=== PATIENT | male | born 1970 | race African-American/Black ===

== ENCOUNTER 2022-02-24 15:41 | Emergency (ER) | payer OTHER ==
[~2022-02-24] VITALS: Ht 170.2 cm; Wt 117.9 kg
--- NOTE | 2022-02-24 16:10 | NUR ---
Patient came in to the er c/o feeling depressed homicidal since yesterday want's voluntary admission to psych. On room air, breathing evenly and unlabored. Kept comfortable, will continue to monitor accordingly.
--- NOTE | 2022-02-24 16:13 | NUR ---
COVID SWAB AND URINE SAMPLE OBTAINED AND SENT TO LAB
[2022-02-24] MEDS ORDERED: OLANZAPINE 5 MG TABLET ONE (16:27)
[2022-02-24] MEDS ORDERED: OLANZAPINE 5 MG TABLET PO ONE (16:30)
[2022-02-24 16:50] LABS: BASOPHILS % (AUTO) 0.4 % (0.0-2.0); EOSINOPHILS % (AUTO) 2.2 % (0.0-6.0); HEMATOCRIT 37 % (39-51); HEMOGLOBIN 12.1 g/dL (13.5-17.5); LYMPHOCYTES # (AUTO) 2.9 K/uL (0.8-4.8); LYMPHOCYTES % (AUTO) 34.7 % (20.0-44.0); MEAN CORPUSCULAR HGB CONC 33 g/dl (31.0-36.0); MEAN CORPUSCULAR VOLUME 95 fL (80-96); MONOCYTES # (AUTO) 0.7 K/uL (0.1-1.30); MONOCYTES % (AUTO) 7.9 % (2.0-12.0); NEUTROPHILS # (AUTO) 4.5 K/uL (1.8-8.9); NEUTROPHILS % (AUTO) 54.8 % (43.0-81.0); PLATELET COUNT (AUTO) 287 K/uL (150-450); RED BLOOD CELL COUNT(AUTO) 3.88 MIL/uL (4.5-6.0); WHITE BLOOD COUNT (AUTO) 8.2 K/uL (4.3-11.0)
[2022-02-24 16:51] LABS: BILIRUBIN,URINE NEGATIVE (NEGATIVE); COLOR,URINE YELLOW (YELLOW); LEUKOCYTE ESTERASE ,URINE NEGATIVE (NEGATIVE); NITRITE, URINE NEGATIVE (NEGATIVE); PROTEIN,URINE NEGATIVE (NEGATIVE); UGLUCOSE NEGATIVE (NEGATIVE); UROBILINOGEN,URINE 0.2 EU/dL (0.2)
[2022-02-24 17:06] LABS: ALANINE AMINOTRANSFERASE 21 U/L (12-78); ALBUMIN 3.5 g/dL (3.4-5.0); ALCOHOL, BLOOD < 3 mg/dL (0-0); ALKALINE PHOSPHATASE 71 U/L (46-116); ASPARTATE AMINOTRANSFERASE 13 U/L (15-37); BILIRUBIN,DIRECT 0.1 mg/dL (0.0-0.2); BILIRUBIN,TOTAL 0.4 mg/dL (0.2-1.0); CALCIUM, SERUM 8.9 mg/dL (8.5-10.1); CARBON DIOXIDE 29 mmol/L (21-32); CHLORIDE 105 mmol/L (98-107); CREATININE 1.1 mg/dL (0.6-1.3); GLUCOSE 103 mg/dL (74-106); POTASSIUM 4.4 mmol/L (3.5-5.1); SODIUM SERUM 140 mmol/L (136-145); TOTAL PROTEIN, SERUM 7.6 g/dL (6.4-8.2); UREA NITROGEN, BLOOD 15 mg/dL (7-18)
--- NOTE | 2022-02-24 18:07 | NUR ---
[facility]ED CLINICALS [facility]
--- NOTE | 2022-02-24 21:17 | NUR ---
PER ART, PT GOING TO [facility] [place] UNDER THE CARE OF DR BERNSTEIN. NUMBER FOR REPORT [phone]
--- NOTE | 2022-02-24 21:45 | NUR ---
[facility] CALLED FOR BLS GOING TO [facility] PER IVANNA - 90 MIN
--- NOTE | 2022-02-24 21:58 | NUR ---
GAVE REPORT TO RUBEN COX FOR MOE
--- NOTE | 2022-02-24 22:30 | NUR ---
GAVE REPORT TO EMS
[2022-02-25 02:58] VITALS: BP 133/76
== END 2022-02-24 22:30 ==
LOC: ER 16:01
DX: R45.850 Homicidal ideations (principal); F20.0 Paranoid schizophrenia; I10 Essential (primary) hypertension; Z20.822 Contact with and (suspected) exposure to COVID-19; Z59.00 Homelessness unspecified; D64.9 Anemia, unspecified; R82.5 Elevated urine levels of drugs, medicaments and biological substances
CPT/HCPCS: 99284; 85025; 80048; 80076; 81003; 36415; 87426; 80143; 80320; 80307; C9803; G0480